=== PATIENT | male | born 1985 | race Caucasian/White ===

== ENCOUNTER 2024-05-25 07:53 | Emergency (ER) | payer OTHER ==
[~2024-05-25] VITALS: Ht 172.7 cm; Wt 68.8 kg
[2024-05-25 08:36] VITALS: BP 140/76; TEMP 97.5; O2SAT 99
== END 2024-05-25 08:38 | disposition home or self-care (01) ==
LOC: M ED 07:53
DX: Z48.02 Encounter for removal of sutures (principal); F17.200 Nicotine dependence, unspecified, uncomplicated